=== PATIENT | male | born 1965 | race Caucasian/White ===

== ENCOUNTER → 2017-10-07 | Day surgery (SDC) | payer BC ==
[~2017-10-07] MED LIST: HYDROmorphone 2 MG/ML VIAL IV; LIDOCAINE 1% PF 2 ML VIAL. ID; LIDOCAINE 2% PF Vial for OR 5 ML VIAL.; MORPHINE SULFATE 2 MG/ML DISP.SYRIN. IV; ONDANSETRON PF 4 MG/2 ML VIAL. IV; PROCHLORPERAZINE 10 MG/2 ML VIAL. IV; PROPOFOL 40 ML IV; fentaNYL PF VIAL 100 MCG/2 ML VIAL IV
[2017-10-07] MEDS: IV RINGERS,LACTATED 1000ML 1,000 ML IV (07:58)
[2017-10-07 08:07] LABS: POC GLUCOSE 140 mg/dL (70-99)
== END | disposition home or self-care (01) ==
LOC: ENDOS 07:23
DX: Z09 Encounter for follow-up examination after completed treatment for conditions other than malignant neoplasm (principal); Z86.010 Personal history of colon polyps; K64.0 First degree hemorrhoids; K62.1 Rectal polyp; K57.30 Diverticulosis of large intestine without perforation or abscess without bleeding; K29.50 Unspecified chronic gastritis without bleeding; K74.60 Unspecified cirrhosis of liver; J45.909 Unspecified asthma, uncomplicated; M19.91 Primary osteoarthritis, unspecified site; Z72.89 Other problems related to lifestyle; G47.33 Obstructive sleep apnea (adult) (pediatric); Z79.899 Other long term (current) drug therapy; I12.9 Hypertensive chronic kidney disease with stage 1 through stage 4 chronic kidney disease, or unspecified chronic kidney disease; N18.9 Chronic kidney disease, unspecified; E11.22 Type 2 diabetes mellitus with diabetic chronic kidney disease; Z79.84 Long term (current) use of oral hypoglycemic drugs; Z82.3 Family history of stroke; Z82.49 Family history of ischemic heart disease and other diseases of the circulatory system; Z90.5 Acquired absence of kidney; Z85.528 Personal history of other malignant neoplasm of kidney
CPT/HCPCS: 43235; 82962; 88305; J2704